=== PATIENT | male | born 1985 | race Caucasian/White ===

== ENCOUNTER 2018-03-30 09:19 | Day surgery (SDC) | payer OTHER ==
[2018-03-30] MEDS ORDERED: BUPIVACAINE 0.25% (MPF) 30 ML INJ (11:10)
[2018-03-30] MEDS ORDERED: EPHEDrine SULFATE 50 MG/5 ML SYG IV (11:30)
[2018-03-30] MEDS ORDERED: MIDAZOLAM 1 MG/ML 2 ML INJ IV (11:30)
[2018-03-30] MEDS ORDERED: FENTAnyl 50 MCG/ML VIAL IV ×3 (11:30)
[2018-03-30] MEDS ORDERED: ALBUTEROL 0.083% (NEB) 2.5 MG/3 ML AMP HHN (11:30)
[2018-03-30] MEDS ORDERED: OXYCODONE/ACETAMINOPHEN (5/325) TAB PO ×2 (11:30)
[2018-03-30] MEDS ORDERED: MEPERIDINE 25 MG INJ IV (11:30)
[2018-03-30] MEDS ORDERED: HYDROmorphONE (0.2 MG/ML) 10ML SYG IV ×2 (11:30)
[2018-03-30] MEDS ORDERED: DIPHENHYDRAMINE 50 MG INJ IV (11:30)
[2018-03-30] MEDS ORDERED: ONDANSETRON 4 MG INJ IV (11:30)
[2018-03-30] MEDS ORDERED: METOCLOPRAMIDE 10 MG INJ IV (11:30)
[2018-03-30] MEDS ORDERED: hydrALAzine 20 MG INJ IV (11:30)
[2018-03-30] MEDS ORDERED: LABETALOL HCL 20MG INJ IV (11:30)
[2018-03-30] MEDS ORDERED: PROPOFOL 20 ML (11:38)
[2018-03-30] MEDS ORDERED: FENTAnyl 50 MCG/ML VIAL (11:39)
[2018-03-30] MEDS ORDERED: CEFAZOLIN 1 GM INJ (11:57)
[2018-03-30] MEDS ORDERED: LIDOCAINE 2% (SDV) 5 ML INJ (11:57)
[2018-03-30] MEDS: HYDROmorphONE (0.2 MG/ML) 10ML SYG IV (12:29)
[2018-03-30] MEDS ORDERED: HYDROCODONE/APAP (5/325) TAB PO (12:30)
[2018-03-30] MEDS: BUPIVACAINE 0.5% (SDV) 30 ML INJ (12:30)
[2018-03-30] MEDS: LIDOCAINE 2% (MDV) 20 ML INJ (12:30)
[2018-03-30] MEDS: KETOROLAC 30 MG INJ IV (12:35)
== END 2018-03-30 14:47 | disposition home or self-care (01) ==
LOC: SDS 09:19
DX: L73.8 Other specified follicular disorders (principal); J45.909 Unspecified asthma, uncomplicated
CPT/HCPCS: 14000; 88307